=== PATIENT | female | born 1960 | race Caucasian/White ===

== ENCOUNTER 2016-12-08 16:29 | Emergency (ER) | payer SELFPAY ==
[~2016-12-08] VITALS: Ht 167.6 cm; Wt 97.1 kg
[2016-12-08 16:44] LABS: URINE BILIRUBIN - DIPSTICK NEGATIVE (NEG); URINE BLOOD 3+ (NEG)
--- NOTE | 2016-12-08 17:47 | Urgent Treatment Center Report ---
History of Present Issue Date/Time Seen by Provider 12/08/16 8347 Visit Reason Pt arrived:Walked Presenting Problem:PT C/O FLANK PAIN AND REQUENT URINATION SINCE LAST NIGHT Location if Accident: Onset of symptoms date/time:/ or onset unknown for:MEDICAL HX UNKNOWN Have you (or family members/close friends) recently traveled outside the [place]? N If Yes, where/when: Have you had exposure to infectious disease within the past month? TB? Other? Specify: Patient state that she has been having flank pain and feeling like she had to urinate freqently and having pain in her left side. States that today pain has continued to get worse and now radiating down from her left side through her groin area and out her vagina. States that she is feeling pressure like pain in her pubic area. State that pain has continued to worsen and she feels like she has to urinate frequently and only going small amounts at time. State that she has been unable to get comfortable so she came in to be seen ALLERGIES Coded Allergies: No Known Allergies (12/08/16) History Medical History General CAD? No Angina: No [place]: No Hypertension? No Hyperlipidemia? No CHF? No DVT? No PE? No COPD? No Asthma? No Anemia? No GERD? No Gastric ulcers? No GI Bleed? No Hernia? No Thyroid Problems? No Hypothyroidism? No CVA? No Seizures? No Diabetes? No Renal Insuffiency? No UTI? No Stones? No BPH? No GB Disease: No Nephritic Syndrome? No Asplenia? No Hepatitis? No Sickle Cell Disease? No Arthritis? No Migraines? No Cataracts? No Glaucoma? No MRSA? No HIV? No TB? No Anxiety? No Depression? No Cancer? No More? No Immunization HX DT/Tetanus Unknown Surgical Hx Previous Surgery?N Social History Smoking Hx Smoker: Current Every Day Smoker Tobacco: Yes Type Cigarettes Alcohol Alcohol: No Review of Systems All Other Systems Reviewed and Negative Genitourinary dysuria, frequency, hematuria, pain, pelvic pain. denies: abnormal vaginal bleeding, vaginal discharge, . Physical Exam Vital Signs Vital Signs Date Time Temp Pulse Resp B/P Pulse O2 O2 Flow FiO2 Ox Delivery Rate 12/08 1712 98.2 85 18 149/101 98 General Appearance Patient appears in pain, restless laying on exam table Respiratory Status Yes: trachea midline, chest symmetrical. No: respiratory distress. Lung Sounds bilateral: normal breath sounds, lungs clear. Cardiovascular normal exam, regular rate/rhythm Gastrointestinal normal bowel sounds, normal exam, no guarding, no rebound Back no CVA tenderness, no vertebral tenderness, Left flank pain that radiates down through groin area into vagina, complains of pressure like feeling on top of pubic area on left side, describes pain as ripping pain Neurologic alert, normal exam, oriented x 3 Medical Decision Making LABS/Meds/Orders Pt receiving controlled substance in ED? No Results/Orders Laboratory Tests 12/08/16 1643: Urine Color YELLOW, Urine Appearance Cloudy, Urine pH 6.5, Ur Specific [place] 1.025, Urine Protein >=300, Urine Ketones TRACE H, Urine Blood 3+ H, Urine Nitrate POSITIVE H, Urine Bilirubin NEGATIVE, Urine Urobilinogen 1.0, Ur Leukocyte Esterase 2+ H, Urine Glucose NEGATIVE Current Medication Orders Sig/Tommy Start time Last Medication Dose Route Stop Time Status Admin Sodium Chloride 10 ML PRN PRN 12/08 1814 AC IV 12/09 180 Sodium Chloride 1,000 ML .Q1H1M 12/08 1814 AC IV 12/08 191 Sodium Chloride 10 ML PRN PRN 12/08 181 AC IV 12/09 180 Ketorolac 0 .STK-MED ONE 12/08 180 DC Tromethamine .ROUTE Ketorolac 60 MG ONCE ONE 12/08 1800 DC Tromethamine IM 12/08 180 Orders Procedure Date/time Status DIET-NOTHING BY MOUTH 12/[address] ABD/PELVIS REQ 12/08 1802 Active IV SALINE LOCK 12/08 1802 Active CBC WITH AUTO DIFF 12/08 1802 Active CHEM 12 PROFILE 12/08 1802 Active UTC URINE DIPSTICK 12/08 164 Complete Progress UTC Progress Notes Comment Spoke with Dr Barrow in the ER and discussed patient with him. Patient being sent to the ER for further work up and evaluation due to possible kidney stone Departure Departure Time of Disposition 180 Disposition Still a Patient Clinical Impression Primary Impression: Flank pain Condition STABLE Comments Patient transfered to ER for further work up for UA and flank pain at 1806
--- NOTE | 2016-12-08 18:14 | Emergency Room Report ---
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 N Clinical Suspician of Infection? N Mental Status: 1 - Regular (Normal Baseline) Sepsis Risk:Low Sepsis Risk Have you (or family members/close friends) recently traveled outside the [place]? N If Yes, where/when: Have you had exposure to infectious disease within the past month? TB? Other? Specify: Comment The patient complains of LEFT flank pain going into her LEFT inguinal area that started last night. A couple of days prior to that she had some dysuria which resolved. No fever. No vomiting. The pain is severe, like labor pains. No visible hematuria. No history of kidney stones. Prior history of kidney infection, but symptoms now are much more severe. The patient was initially seen in the urgent treatment center and transferred here because of the possibility of a kidney stone. Her pain is now much better after receiving Toradol. ALLERGIES Coded Allergies: No Known Allergies (12/08/16) History Medical History General CAD? No Angina: No [place]: No Hypertension? No Hyperlipidemia? No CHF? No DVT? No PE? No COPD? No Asthma? No Anemia? No GERD? No Gastric ulcers? No GI Bleed? No Hernia? No Thyroid Problems? No Hypothyroidism? No CVA? No Seizures? No Diabetes? No Renal Insuffiency? No End Stage Renal Disease? No UTI? No Stones? No BPH? No GB Disease: No Nephritic Syndrome? No Asplenia? No Hepatitis? No Sickle Cell Disease? No Arthritis? No Migraines? No Cataracts? No Glaucoma? No MRSA? No HIV? No TB? No Anxiety? No Depression? No Cancer? No More? 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 Musculoskeletal back pain Physical Exam Vital Signs Vital Signs Date Time Temp Pulse Resp B/P Pulse O2 O2 Flow FiO2 Ox Delivery Rate 12/08 1920 97.9 83 22 143/92 98 12/08 180 98.2 85 18 149/101 98 12/08 1801 22 12/08 1712 98.2 85 18 149/101 98 General Appearance no apparent distress Eye Exam - bilateral eye normal exam, bilateral eye PERRL, bilateral eye EOMI Ear, Nose, Throat hearing grossly normal, normal ENT inspection Neck normal inspection, non-tender, supple, full range of motion Respiratory Status Yes: trachea midline, chest symmetrical, non tender chest. No: respiratory distress. Lung Sounds bilateral: normal breath sounds, lungs clear. 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 Yes Mc was queried for this patient? Yes Comment [id number] rxs. Results/Orders Laboratory Tests 12/08/16 1810: Sodium 141, Potassium 3.6, Chloride 107, Carbon Dioxide 27, BUN 14, Creatinine 0.7, Estimated Creat Clear 139, Estimated GFR (MDRD) 87, Glucose 93, Calcium 9.0 , Total Bilirubin 0.4, AST 9 L, ALT 22, Alkaline Phosphatase 88, Total Protein 7.1, Albumin 4.0, Globulin 3.1, Albumin/Globulin Ratio 1.3, WBC 14.1 H, RBC 5.16, Hgb 15.4, Hct 47.5 H, MCV 92.1, RDW 12.9, Plt Count 262, MPV 8.4, Gran % 72.2, Gran # 10.2 H, Lymphocytes % 18.1, Monocytes % 5.6, Eosinophils % 3.0, Basophils % 1.0, Lymphocytes # 2.6, Monocytes # 0.8, Eosinophils # 0.4, Basophils # 0.2, PUBS MCHC 32.5, MCH 29.9 12/08/16 1643: Urine Color YELLOW, Urine Appearance Cloudy, Urine pH 6.5, Ur Specific [place] 1.025, Urine Protein >=300, Urine Ketones TRACE H, Urine Blood 3+ H, Urine Nitrate POSITIVE H, Urine Bilirubin NEGATIVE, Urine Urobilinogen 1.0, Ur Leukocyte Esterase 2+ H, Urine Glucose NEGATIVE Current Medication Orders Sig/Tommy Start time Last Medication Dose Route Stop Time Status Admin Acetaminophen/ 1 MALIKA ONCE ONE 12/09 1999 AC Codeine Phosphate PO 12/08 2000 Levofloxacin/Dextrose 150 ML ONCE ONE 12/09 1999 CKDr IV 12/08 2128 Morphine Sulfate 4 MG ONCE ONE 12/09 1999 AC IV 12/08 2000 Ondansetron HCl 4 MG ONCE ONE 12/09 1999 AC IV 12/08 2000 Sodium Chloride 10 ML PRN PRN 12/08 181 AC IV 12/09 180 Sodium Chloride 1,000 ML .Q1H1M 12/08 181 DC IV 12/08 191 Sodium Chloride 10 ML PRN PRN 12/08 181 AC IV 12/09 180 Ketorolac 0 .STK-MED ONE 12/08 180 DC Tromethamine .ROUTE Ketorolac 60 MG ONCE ONE 12/08 1800 CAN Tromethamine IM 12/08 180 Ketorolac 30 MG ONCE ONE 12/08 1800 DC 12/08 Tromethamine IV 12/08 1801 1801 Orders Procedure Date/time Status DIET-NOTHING BY MOUTH 12/09 B Active URINALYSIS/COMPLETE 12/[address] ABD & PELVIS W/O CONTRAST 12/[address] ABD/PELVIS REQ 12/08 1802 Active IV SALINE LOCK 12/08 1802 Active CBC WITH AUTO DIFF 12/08 1802 Complete CHEM 12 PROFILE 12/08 180 Complete UTC URINE DIPSTICK 12/08 164 Complete CULTURE, URINE 12/08 1630 Active XRAY/CT/US XRAY/CT/US CT abdomen, pelvis Comment CT scan interpreted by [facility] radiologist. Faxed report received and reviewed: Nonobstructing punctate stones in both kidneys. Progress - 7:50 PM: Patient states she feels well enough to go home and would like to be treated as an outpatient. Departure Departure Disposition DC Home or Self Care(routine) Clinical Impression Primary Impression: Pyelonephritis Condition STABLE Patient Instructions DI for Kidney Infection Additional Instructions Katlynve, 2 every 12 hours. Antibiotic and pain medication as prescribed. Additional instructions for URINARY TRACT INFECTION: See your physician as soon as possible for further evaluation. Return immediately if you have an uncontrollable fever greater than 102 degrees, severe back or abdominal pain, inability to urinate, or repetetive vomiting. Prescriptions Current Visit Scripts Levofloxacin (Levaquin 500MG) 500 MG PO DAILY #10 TAB HYDROCODONE/ACETAMINOPHEN ([place] 5-325 Tablet) 1 TAB PO Q6HP PRN pain #10 TAB ED Critical Care Critical Care No at 1951
--- NOTE | 2016-12-08 18:14 | Emergency Room Report ---
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 N Clinical Suspician of Infection? N Mental Status: 1 - Regular (Normal Baseline) Sepsis Risk:Low Sepsis Risk Have you (or family members/close friends) recently traveled outside the [place]? N If Yes, where/when: Have you had exposure to infectious disease within the past month? TB? Other? Specify: Comment The patient complains of LEFT flank pain going into her LEFT inguinal area that started last night. A couple of days prior to that she had some dysuria which resolved. No fever. No vomiting. The pain is severe, like labor pains. No visible hematuria. No history of kidney stones. Prior history of kidney infection, but symptoms now are much more severe. The patient was initially seen in the urgent treatment center and transferred here because of the possibility of a kidney stone. Her pain is now much better after receiving Toradol. ALLERGIES Coded Allergies: No Known Allergies (12/08/16) History Medical History General CAD? No Angina: No [place]: No Hypertension? No Hyperlipidemia? No CHF? No DVT? No PE? No COPD? No Asthma? No Anemia? No GERD? No Gastric ulcers? No GI Bleed? No Hernia? No Thyroid Problems? No Hypothyroidism? No CVA? No Seizures? No Diabetes? No Renal Insuffiency? No End Stage Renal Disease? No UTI? No Stones? No BPH? No GB Disease: No Nephritic Syndrome? No Asplenia? No Hepatitis? No Sickle Cell Disease? No Arthritis? No Migraines? No Cataracts? No Glaucoma? No MRSA? No HIV? No TB? No Anxiety? No Depression? No Cancer? No More? No Immunization Hx Ped.Immunizations UTD Yes DT/Tetanus Unknown Surgical Hx Previous Surgery?N HOME HEALTH LVN Hx LMP N/A Social History Smoking Hx Smoker: Unknown if Ever Smoked Tobacco: No Type N/A Are you/the child exposed to second-hand smoke: No Alcohol Alcohol: No Review of Systems All Other Systems Reviewed and Negative Constitutional denies fever Gastrointestinal abdominal pain, denies nausea, denies vomiting Genitourinary dysuria. Musculoskeletal back pain Physical Exam Vital Signs Vital Signs Date Time Temp Pulse Resp B/P Pulse O2 O2 Flow FiO2 Ox Delivery Rate 12/08 1920 97.9 83 22 143/92 98 12/08 180 98.2 85 18 149/101 98 12/08 1801 22 12/08 1712 98.2 85 18 149/101 98 General Appearance no apparent distress Eye Exam - bilateral eye normal exam, bilateral eye PERRL, bilateral eye EOMI Ear, Nose, Throat hearing grossly normal, normal ENT inspection Neck normal inspection, non-tender, supple, full range of motion Respiratory Status Yes: trachea midline, chest symmetrical, non tender chest. No: respiratory distress. Lung Sounds bilateral: normal breath sounds, lungs clear. 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 Yes Mc was queried for this patient? Yes Comment [id number] rxs. Results/Orders Laboratory Tests 12/08/16 1810: Sodium 141, Potassium 3.6, Chloride 107, Carbon Dioxide 27, BUN 14, Creatinine 0.7, Estimated Creat Clear 139, Estimated GFR (MDRD) 87, Glucose 93, Calcium 9.0 , Total Bilirubin 0.4, AST 9 L, ALT 22, Alkaline Phosphatase 88, Total Protein 7.1, Albumin 4.0, Globulin 3.1, Albumin/Globulin Ratio 1.3, WBC 14.1 H, RBC 5.16, Hgb 15.4, Hct 47.5 H, MCV 92.1, RDW 12.9, Plt Count 262, MPV 8.4, Gran % 72.2, Gran # 10.2 H, Lymphocytes % 18.1, Monocytes % 5.6, Eosinophils % 3.0, Basophils % 1.0, Lymphocytes # 2.6, Monocytes # 0.8, Eosinophils # 0.4, Basophils # 0.2, PUBS MCHC 32.5, MCH 29.9 12/08/16 1643: Urine Color YELLOW, Urine Appearance Cloudy, Urine pH 6.5, Ur Specific [place] 1.025, Urine Protein >=300, Urine Ketones TRACE H, Urine Blood 3+ H, Urine Nitrate POSITIVE H, Urine Bilirubin NEGATIVE, Urine Urobilinogen 1.0, Ur Leukocyte Esterase 2+ H, Urine Glucose NEGATIVE Current Medication Orders Sig/Tommy Start time Last Medication Dose Route Stop Time Status Admin Acetaminophen/ 1 MALIKA ONCE ONE 12/09 1999 AC Codeine Phosphate PO 12/08 2000 Levofloxacin/Dextrose 150 ML ONCE ONE 12/09 1999 CKDr IV 12/08 2128 Morphine Sulfate 4 MG ONCE ONE 12/09 1999 AC IV 12/08 2000 Ondansetron HCl 4 MG ONCE ONE 12/09 1999 AC IV 12/08 2000 Sodium Chloride 10 ML PRN PRN 12/08 181 AC IV 12/09 180 Sodium Chloride 1,000 ML .Q1H1M 12/08 181 DC IV 12/08 191 Sodium Chloride 10 ML PRN PRN 12/08 181 AC IV 12/09 180 Ketorolac 0 .STK-MED ONE 12/08 180 DC Tromethamine .ROUTE Ketorolac 60 MG ONCE ONE 12/08 1800 CAN Tromethamine IM 12/08 180 Ketorolac 30 MG ONCE ONE 12/08 1800 DC 12/08 Tromethamine IV 12/08 1801 1801 Orders Procedure Date/time Status DIET-NOTHING BY MOUTH 12/09 B Active URINALYSIS/COMPLETE 12/[address] ABD & PELVIS W/O CONTRAST 12/[address] ABD/PELVIS REQ 12/08 1802 Active IV SALINE LOCK 12/08 1802 Active CBC WITH AUTO DIFF 12/08 1802 Complete CHEM 12 PROFILE 12/08 180 Complete UTC URINE DIPSTICK 12/08 164 Complete CULTURE, URINE 12/08 1630 Active XRAY/CT/US XRAY/CT/US CT abdomen, pelvis Comment CT scan interpreted by [facility] radiologist. Faxed report received and reviewed: Nonobstructing punctate stones in both kidneys. Progress - 7:50 PM: Patient states she feels well enough to go home and would like to be treated as an outpatient. Departure Departure Disposition DC Home or Self Care(routine) Clinical Impression Primary Impression: Pyelonephritis Condition STABLE Patient Instructions DI for Kidney Infection Additional Instructions Katlynve, 2 every 12 hours. Antibiotic and pain medication as prescribed. Additional instructions for URINARY TRACT INFECTION: See your physician as soon as possible for further evaluation. Return immediately if you have an uncontrollable fever greater than 102 degrees, severe back or abdominal pain, inability to urinate, or repetetive vomiting. Prescriptions Current Visit Scripts Levofloxacin (Levaquin 500MG) 500 MG PO DAILY #10 TAB HYDROCODONE/ACETAMINOPHEN ([place] 5-325 Tablet) 1 TAB PO Q6HP PRN pain #10 TAB ED Critical Care Critical Care No at 1951
[2016-12-08 18:54] LABS: HEMOGLOBIN 15.4 g/dL (12.2-16.2); LYMPH # 2.6 K/mm3 (0.7-4.5); LYMPH % 18.1 % (10-50.0)
[2016-12-08] MEDS ORDERED: LEVAQUIN500 MG PO (19:48)
[2016-12-08] MEDS ORDERED: NORCO 325 MG-51 TAB PO (19:48)
[2016-12-08 20:19] VITALS: BP 140/96
--- NOTE | 2016-12-08 21:53 | RADIOLOGY REPORT PS360 ---
CT ABD PELVIS W/O CONTRAST COMPARISON: None HISTORY: Left-sided abdominal pain TECHNIQUE: Multiple axial scans obtained from the hemidiaphragms the pelvic floor and were performed without IV or oral contrast. The joint coronal reformats were evaluated as well. FINDINGS: The lower lung perez are clear. The liver spleen stomach pancreas and gallbladder are grossly normal stomach is somewhat distended with ingested food particles and the gallbladder is partially contracted but shows no stones. Adrenal glands are normal. The kidneys are normal size and there are tiny 1 mm or less nonobstructing calculi in each kidney. There is no obstructive uropathy of either kidney. Small bowel appears normal. There is a tiny umbilical hernia containing fat only. The appendix is normal. There is moderate stool in the ascending colon. There is mild diffuse diverticulosis of the lower descending sigmoid colon with is no diverticulitis. There is been a previous hysterectomy, urinary bladder is decompressed, there is no free fluid in the pelvis. IMPRESSION: Tiny nonobstructing calculi in each kidney. Mild diffuse diverticulosis of the lower descending and sigmoid colon without diverticulitis. Agree the [facility] report
--- OUTSIDE RECORDS SUMMARY | 2016-12-14 15:44 | External Medical Summary Rpt | CCD ---
Author Author , ANNABEL KIMBLE Address Unknown Phone [email or web address] Purpose Continuity of Care Document - through 2016
--- OUTSIDE RECORDS SUMMARY | 2016-12-14 15:44 | External Medical Summary Rpt | CCD ---
Author Author , LAMIN KIMBLE Address Unknown Phone [email or web address] Purpose Continuity of Care Document - 12-08-2016 through 2016 Results Labs Lab Lab Date Result Refere Interp Status Commen Order Detail nces retati t Range on Urinalysis by dipstick (12-08-2016 16:43) Urine 1.0 1.0 NEG complet urobili 017 L ed nogen 16:43 E.U./dL detecti on by test str Urine POSITIV NEG complet nitrite 017 E ed 16:43 POSITIV detecti E L on by test strip Urine 2+ 2+ L NEG complet leukocy 017 ed te 16:43 esteras e detecti on by au Urine = 1.025 1.005-1 complet specifi 017 .030 ed c 16:43 gravity measure ment Urine > =300 NEG complet protein 017 mg/dL ed 16:43 measure ment by automat ed t Urine = 6.5 5.0-8.5 complet pH 017 ed 16:43 Urine TRACE NEG complet ketones 017 TRACE L ed 16:43 mg/dL detecti on by automat ed livia Glucose = NEG complet ur 017 NEGATIV ed test 16:43 E strip Urine YELLOW YELLOW complet color 017 YELLOW ed 16:43 L Urine 3+ 3+ L NEG complet blood 017 ed detecti 16:43 on Urine NEGATIV NEG complet total 017 E ed bilirub 16:43 NEGATIV in E L detecti on by test Urine Cloudy CLEAR complet appeara 017 Cloudy ed nce 16:43 L determi nation
--- OUTSIDE RECORDS SUMMARY | 2016-12-14 15:44 | External Medical Summary Rpt | CCD ---
Author Author , LAMIN KIMBLE Address Unknown Phone [email or web address] Purpose Continuity of Care Document - 12-08-2016 [...]
--- OUTSIDE RECORDS SUMMARY | 2016-12-14 15:44 | External Medical Summary Rpt | CCD ---
Author Author , ANNABEL KIMBLE Address Unknown Phone [email or web address] Purpose Continuity of Care Document - through 2016
--- OUTSIDE RECORDS SUMMARY | 2016-12-14 15:45 | External Medical Summary Rpt ---
Author Author LAMIN Gan, [employer] Organization [employer] Address Unknown Phone Unavailable
--- OUTSIDE RECORDS SUMMARY | 2016-12-14 15:45 | External Medical Summary Rpt | CCD ---
Demographics Preferred Language Polish Marital Status Unknown Jainism Affiliation Unknown Race Unknown Ethnic Group Unknown Author Author , LAMIN KIMBLE Address Unknown Phone Immunization Unable to retrieve immunization data due to connection failure with Immunization Registry. Please try again later.
--- OUTSIDE RECORDS SUMMARY | 2016-12-14 15:45 | External Medical Summary Rpt | CCD ---
Demographics Preferred Language Portuguese Marital Status Unknown Holiness Affiliation Unknown Race Unknown Ethnic Group Unknown Author Author , LAMIN KIMBLE Address Unknown Phone Immunization Unable to retrieve immunization data due to connection failure with Immunization Registry. Please try again later.
== END 2016-12-08 20:32 | disposition home or self-care (01) ==
LOC: UTC 16:29 → ER 16:32
PROVIDERS: Emergency Medicine; Nurse Practitioner
DX: N10 Acute pyelonephritis (principal); F17.210 Nicotine dependence, cigarettes, uncomplicated
CPT/HCPCS: J2405